=== PATIENT | female | born 1960 | race Caucasian/White ===

== ENCOUNTER 2020-11-27 17:00 | Outpatient (CLI) | payer OTHER | END 2020-11-27 23:59 | disposition home or self-care (01) | LOC: D.MAMMO 17:00 | PROVIDERS: ATTEND Family Medicine | DX: Z12.31 Encounter for screening mammogram for malignant neoplasm of breast (principal) ==

== ENCOUNTER 2021-01-04 19:35 | Emergency (ER) | payer OTHER ==
[~2021-01-04] VITALS: Ht 157.5 cm; Wt 49.5 kg
[2021-01-04 19:41] VITALS: Ht 157.5 cm; Wt 49.5 kg
[2021-01-04] MEDS ORDERED: TRAZODONE HCL150 MG PO (19:42)
[2021-01-04] MEDS ORDERED: K-TAB10 MEQ PO (19:42)
[2021-01-04] MEDS ORDERED: LISINOPRIL10 MG PO (19:43)
[2021-01-04] MEDS ORDERED: ZOLOFT100 MG PO (19:43)
[2021-01-04] MEDS ORDERED: XANAX XR2 MG PO (19:43)
[2021-01-04] MEDS ORDERED: CARAFATE1 G PO (19:44)
[2021-01-04] MEDS ORDERED: PROTONIX40 MG PO (19:44)
[2021-01-04] MEDS ORDERED: CENTRUM SILVER1 EAC3 PO (19:45)
[2021-01-04] MEDS ORDERED: LINZESS290 MCG PO (19:45)
[2021-01-04] MEDS ORDERED: MERIBIN5 MG PO (19:45)
[2021-01-04] MEDS ORDERED: PROBIOTIC BLEN1 EACH (19:45)
[2021-01-04 20:38] LABS: BASOPHILS 0.4 % (0-2); EOSINOPHILS 0.9 % (0-7); HEMATOCRIT 44.9 % (36.0-48.0); HEMOGLOBIN 14.7 g/dL (12-16); LYMPHOCYTES 30.3 % (15-50); MCH 27.5 pg (26.0-34.0); MCHC 32.6 g/dL (31.0-37.0); MCV 84.3 fL (80.0-100.0); MEAN PLATELET VOLUME 7.3 fL (7.4-10.4); MONOCYTES 7.7 % (2-11); NEUTROPHILS 60.7 % (40-80); PLATELET COUNT 458 10x3/uL (130-400); RBC 5.33 10x6/uL (4.00-5.40); WBC 17.9 10x3/uL (4.8-10.8)
[2021-01-04 20:47] LABS: CALC OSMOLALITY 271 mosm/kg (275-300); CALCIUM 10.5 mg/dL (8.5-10.1); CARBON DIOXIDE 23.7 mmol/L (21.0-32.0); CHLORIDE - SERUM 97 mmol/L (98-107); GLUCOSE 106 mg/dL (74-106); POTASSIUM - SERUM 5.1 mmol/L (3.5-5.1); SODIUM 134 mmol/L (136-145); UREA NITROGEN 25 mg/dL (7-18); eGFR NON AFRICAN AMERICAN 60 mL/min (90-120)
[2021-01-04 20:48] LABS: APTT 32.6 SECONDS (22.8-39.4); INR 1.06 (0.85-1.17); PROTIME 12.8 SECONDS (11.6-15.0)
[2021-01-04 21:05] LABS: ALBUMIN 5.3 g/dL (3.4-5.0); ALKALINE PHOSPHATASE 161 U/L (30-120); ALT (SGPT) 22 U/L (10-68); BILIRUBIN - TOTAL 0.47 mg/dL (0.2-1.3); CKMB 1.2 U/L (0.0-3.6); CREATINE KINASE 43 UL (21-215); MAGNESIUM - SERUM 2.3 mg/dL (1.8-2.4); PROTEIN - SERUM 10.1 g/dL (6.4-8.2); TROPONIN-I < 0.017 ng/mL (0.000-0.060)
[2021-01-04 21:51] LABS: BILIRUBIN NEGATIVE (NEGATIVE); KETONE NEGATIVE (NEGATIVE); NITRITE NEGATIVE (NEGATIVE); UROBILINOGEN NORMAL mg/dL (< 2)
[2021-01-05 00:17] VITALS: BP 136/64
== END 2021-01-05 00:05 | disposition home or self-care (01) ==
LOC: D.ER 19:35
PROVIDERS: Family Medicine
DX: R53.1 Weakness (principal); E86.0 Dehydration; D72.829 Elevated white blood cell count, unspecified; I10 Essential (primary) hypertension; Z72.0 Tobacco use